=== PATIENT | female | born 1990 | race Caucasian/White ===

== ENCOUNTER → 2019-03-08 | Outpatient (REF) | payer BC | LOC: M LAB LCGH 10:59 | PROVIDERS: ATTEND Family Medicine | DX: D22.5 Melanocytic nevi of trunk (principal) ==

== ENCOUNTER → 2020-03-27 | Outpatient (REF) | payer BC | LOC: M LAB REF 09:00 | PROVIDERS: ATTEND Dermatology | DX: D22.72 Melanocytic nevi of left lower limb, including hip (principal) ==